=== PATIENT | female | born 1935 | race Asian ===

== ENCOUNTER → 2024-07-05 | Outpatient (CLI) | payer OTHER, MEDICAID, SELFPAY ==
--- NOTE | 2024-07-05 12:00 | XR_ITS ---
Examination: Bone densitometry Date and time of exam:July 05, 2024 1158 hours INDICATIONS: Hysterectomy age 38% history osteoporosis Technique: Lumbar spine and hip total bone mineralization values of an calculated. Peak reference and age match control results have been displayed. Findings: Lumbar spine total bone mineralization is0.712 gm/cm2. This is 3.0 standard deviations below peak reference. This is 0.2 standard deviations below age-matched controls. Hip total bone mineralization is 0.607 gm/cm2 This is 2.7 standard deviations below peak reference. This is 0.4 standard deviations below age-matched controls Impression: There is osteoporosis based on lumbar spine measurements. There is osteoporosis based on hip measurements Lumbar mineralization is decreased 3.3% compared with July 02, 2016 Hip mineralization is decreased 13.6% compared with July 02, 2016
[2024-07-05 12:56] LABS: Parathyroid Hormone Intact 145.8 pg/ml (18.5-88.0)
[2024-07-05 13:00] LABS: Albumin, Serum 4.7 gm/dL (3.4-4.8); Anion Gap 8 (7-16); BUN/Creatinine Ratio 15 Ratio (12-20); Blood Urea Nitrogen 12 mg/dL (9-23); Calcium 11.1 mg/dL (8.3-10.6); Calcium (Corrected) 11.1 mg/dL (8.5-10.1); Carbon Dioxide 28.4 mMol/L (20.0-31.0); Chloride 104 mMol/L (98-107); Creatinine (Component) 0.8 mg/dL (0.6-1.3); Glucose 139 mg/dL (74-106); Osmolality,Calculated 281 (275-295); Phosphorous 3.1 mg/dL (2.4-5.1); Potassium 4.4 mMol/L (3.4-5.1); Sodium 140 mMol/L (136-145); eGFR > 60 See Note
== END | disposition home or self-care (01) ==
LOC: CDIM 11:42 → COPL 12:00
PROVIDERS: Referring Provider Internal Medicine; Visit Provider Radiology Diagnostic Radiology
DX: M81.0 Age-related osteoporosis without current pathological fracture (principal); E83.52 Hypercalcemia
CPT/HCPCS: 36415; 77080; 80069; 83970

== ENCOUNTER → 2024-10-14 | Outpatient (CLI) | payer MEDICARE, MEDICAID, SELFPAY ==
[2024-10-14 11:20] LABS: Basophils # (Auto) 0.1 Thou/mm3 (0.0-0.2); Basophils % (Auto) 1 % (0-2.5); Eosinophils # (Auto) 0.1 Thou/mm3 (0.0-0.5); Eosinophils % (Auto) 2 % (0-10); Hematocrit 40.5 % (36.0-46.0); Hemoglobin 12.9 g/dL (12.0-16.0); Immature Granulocytes % (Auto) 0 % (0-0); Immature Granulocytes Auto 0.02 Thou/mm3 (0.00-0.00); Lymphocytes % (Auto) 20 % (10-50); Mean Corpuscular HGB Conc 31.9 g/dl (31.0-37.0); Mean Corpuscular Volume 94 fL (80-100); Monocytes # (Auto) 0.3 Thou/mm3 (0.0-0.8); Monocytes % (Auto) 6 % (0-12); Neutrophils # (Auto) 3.6 Thou/mm3 (1.8-7.7); Neutrophils % (Auto) 71 % (37-80); Nucleated Red Blood Cell % 0 /100 WBC (0); Platelet Count 227 Thou/mm3 (140-440); RDW Standard Deviation 46.8 fL (36.4-46.3)
[2024-10-14 12:25] LABS: Sed Rate (ESR) 8 mm/hr (0-30)
== END | disposition home or self-care (01) ==
LOC: COPL 10:09
PROVIDERS: PCP Internal Medicine; Referring Provider Internal Medicine; Visit Provider Internal Medicine
DX: R51.9 Headache, unspecified (principal)
CPT/HCPCS: 36415; 85025; 85652

== ENCOUNTER → 2025-02-02 | Outpatient (CLI) | payer MEDICARE, MEDICAID, SELFPAY ==
[2025-02-02 10:17] LABS: Collection Type, Urine Clean Catch
[2025-02-02 10:33] LABS: Basophils # (Auto) 0.1 Thou/mm3 (0.0-0.2); Basophils % (Auto) 1 % (0-2.5); Eosinophils # (Auto) 0.1 Thou/mm3 (0.0-0.5); Eosinophils % (Auto) 1 % (0-10); Hematocrit 39.5 % (36.0-46.0); Hemoglobin 12.7 g/dL (12.0-16.0); Immature Granulocytes Auto 0.01 Thou/mm3 (0.00-0.00); Lymphocytes # (Auto) 1.0 Thou/mm3 (1.0-4.8); Lymphocytes % (Auto) 17 % (10-50); Mean Corpuscular HGB Conc 32.2 g/dl (31.0-37.0); Mean Corpuscular Hemoglobin 30.8 pg (25.0-35.0); Mean Corpuscular Volume 96 fL (80-100); Monocytes # (Auto) 0.3 Thou/mm3 (0.0-0.8); Monocytes % (Auto) 6 % (0-12); Neutrophils # (Auto) 4.4 Thou/mm3 (1.8-7.7); Neutrophils % (Auto) 76 % (37-80); Nucleated Red Blood Cell # 0.00 Thou/mm3 (0.00-0.00); Nucleated Red Blood Cell % 0 /100 WBC (0); Platelet Count 242 Thou/mm3 (140-440); RDW Standard Deviation 45.9 fL (36.4-46.3); Red Blood Count 4.12 Miln/mm3 (4.00-5.20); White Blood Count 5.9 Thou/mm3 (3.6-11.0)
[2025-02-02 10:40] LABS: Parathyroid Hormone Intact 132.5 pg/ml (18.5-88.0)
[2025-02-02 10:45] LABS: Alanine Aminotransferase 13 U/L (10-49); Albumin, Serum 4.4 gm/dL (3.4-4.8); Albumin/Globulin Ratio 1.6 (1.2-2.2); Alkaline Phosphatase 54 U/L (46-116); Anion Gap 9 (7-16); Aspartate Amino Transferase 23 U/L (0-34); BUN/Creatinine Ratio 14 Ratio (12-20); Bilirubin,Total 1.0 mg/dL (0.3-1.2); Blood Urea Nitrogen 11 mg/dL (9-23); Calcium 9.8 mg/dL (8.3-10.6); Calcium (Corrected) 9.8 mg/dL (8.5-10.1); Carbon Dioxide 29.6 mMol/L (20.0-31.0); Cardiac Risk Estimate 2.2 RATIO (3.7-5.6); Chloride 107 mMol/L (98-107); Cholesterol 154 mg/dL (132-200); Creatinine (Component) 0.8 mg/dL (0.6-1.3); Globulin 2.7 gm/dL (2.3-3.5); Glucose 96 mg/dL (74-106); HDL Cholesterol 70 mg/dL (40-60); LDL Cholesterol,Calculated 71 mg/dL (0-130); Osmolality,Calculated 289 (275-295); Potassium 4.6 mMol/L (3.4-5.1); Sodium 146 mMol/L (136-145); Thyroid Stimulating Hormone 5.35 uIU/mL (0.55-4.78); Total Protein 7.1 gm/dL (5.7-8.2); Triglycerides 64 mg/dL (30-150); Uric Acid 6.1 mg/dL (3.1-7.8); eGFR > 60 See Note
[2025-02-02 10:49] LABS: Vitamin B12 613 pg/mL (211-911); Vitamin D 25 Hydroxy Total 149.1 ng/mL (7.3-40.2)
[2025-02-02 10:52] LABS: Bilirubin,Urine Negative (Negative); Blood,Urine 1+ (Negative); Clarity,Urine Clear (Clear/Hazy); Color,Urine Lt-Yellow (Lt Yel-Yel); Glucose, Urine Negative (Negative); Hyaline Casts,Urine < 1 /hpf (0-1); Ketones,Urine Negative (Negative); Leukocyte Esterase,Urine Negative (Negative); Nitrite,Urine Negative (Negative); PH,Urine 6.5 (5.0-7.0); Protein,Urine Negative (Neg - Trace); RBC,Urine 3 /hpf (0-3); Specific Gravity,Urine 1.012 (1.001-1.035); Squamous Epithelial Cell,Urine < 1 /hpf (0-5); Urobilinogen,Urine Negative mg/dL (0.0-1.0); WBC,Urine 1 /hpf (0-5)
[2025-02-02 11:13] LABS: Glucose Estimated Average 105 mg/dL (80-131); Hemoglobin A1C 5.3 % Hgb (4.8-6.0)
== END | disposition home or self-care (01) ==
PROVIDERS: PCP Internal Medicine; Referring Provider Internal Medicine; Visit Provider Internal Medicine
DX: Z00.00 Encounter for general adult medical examination without abnormal findings (principal); I10 Essential (primary) hypertension; E03.9 Hypothyroidism, unspecified; E21.0 Primary hyperparathyroidism
CPT/HCPCS: 36415; 80053; 80061; 81001; 82306; 82607; 83036; 83970; 84443; 84550; 85025

== ENCOUNTER 2025-02-03 09:15 | Day surgery (SDC) | payer MEDICARE, SELFPAY ==
[2025-02-02 14:08] VITALS: BMI 18.0
[2025-02-03] VITALS (9 sets, daily range): BP systolic 106–174; BP diastolic 57–89; PULSE 50–73; RESP 14–20; TEMP 36.5–36.9; O2SAT 95–100; BMI 17.2
[2025-02-03] MEDS: SODIUM CHLORIDE 0.9% 500 ML 500 ML 20 ML IV (11:18)
[2025-02-03] MEDS: BENZOCAINE 20% (Hurricaine) SPRAY 1 DOSE TOP (11:18)
[2025-02-03] MEDS: MIDAZOLAM INJ 1 MG/ML VIAL 2 ML (ASD USE ONLY) 2 MG IVP (11:22)
[2025-02-03] MEDS: fentaNYL CIT INJ 50 mCg/ML AMP 2ML (ASD USE ONLY) IVP (11:23)
[2025-02-03] MEDS: ONDANSETRON INJ 2 MG/ML INJ 2 ML 4 MG IVP (11:25)
--- NOTE | 2025-02-03 11:52 | SUR.PHASEII ---
1133: Pt received for recovery. Report from [place] [facility]. Pt very sleepy. Is arousable with eye opening then drifts to sleep. Resp even, unlabored. VS stable. No complaints voiced. 1148: Pt remains very sleepy. Unable to remain awake when aroused. Resp even, unlabored. VS stable.
--- NOTE | 2025-02-03 12:29 | SUR.PHASEII ---
1200: Pt now awake, oriented. VS stable. Denies pain. Pt tolerating po fluids with no cifficulty swallowing and no n/v. 1220: Pt fully awake, oriented. Pt dressed. Assisted to transport chair. Ambulation steady. Pt and daughter stated understanding of discharge instructions. Pt discharged from [facility] in stable condition.
== END 2025-02-03 12:20 | disposition home or self-care (01) ==
PROVIDERS: PCP Internal Medicine; Referring Provider Specialist; Visit Provider Specialist
PROC: (CPT 43239; principal; 2025-02-03 11:15)
DX: K22.2 Esophageal obstruction (principal); K20.90 Esophagitis, unspecified without bleeding; K29.70 Gastritis, unspecified, without bleeding; K29.50 Unspecified chronic gastritis without bleeding; K63.89 Other specified diseases of intestine
CPT/HCPCS: 43248; 43239; C1769; J1200; J2250; J2405; J3010; J7999; A9270

== ENCOUNTER → 2025-05-19 | Outpatient (CLI) | payer MEDICARE, MEDICAID, SELFPAY ==
--- NOTE | 2025-05-19 14:00 | XR_ITS ---
Examination: MRI brain without intravenous contrast. Date and time of exam: May 19, 2025, 1552 hours INDICATIONS: Onset headaches and dizziness beginning 4 days ago Technique: Multiple axial and sagittal images of the brain obtained. Siemens high-resolution 1.5 Tonia short bore scanners utilized. Sagittal sections, T1-weighted, TR 500, TE 14, are performed. Axial sections proton-density and T2-weighted have been obtained. Inversion recovery axial images, TR 9, 260, TE 111, TI 2500. Diffusion weighted images, axial sections, TR 4800, TE 128, B value 1000 Axial sections, ADC map, TR 4800, TE 128 Findings: Enlargement of the sella turcica is not present. The optic chiasm and infundibular are not remarkable. Prepontine and interpeduncular cisterns are not enlarged. There is no localized enlargement of the medulla or adia. Fourth ventricle and cerebellar tonsils appear normal in position. No subacute area of hemorrhage density is seen. Mass in the cerebellopontine angle region is not evident. Globes symmetrical. Orbital musculature including medial lateral rectus muscles do not exhibit abnormality. Diffusion-weighted images demonstrate no focus of restricted diffusion. Increased white matter signal moderate Chronic pansinusitis Mass effect upon the ventricular system is not identified. Impression: Negative for acute hemorrhage or mass effect or midline shift No acute infarct Moderate chronic microvascular white matter change Chronic pansinusitis
== END | disposition home or self-care (01) ==
LOC: SMRI 13:32
PROVIDERS: PCP Internal Medicine; Referring Provider Internal Medicine; Visit Provider Internal Medicine
DX: R90.82 White matter disease, unspecified (principal); J32.4 Chronic pansinusitis
CPT/HCPCS: 70551